=== PATIENT | male | born 1970 | race Caucasian/White ===

== ENCOUNTER 2018-03-29 08:23 | Emergency (ER) | payer OTHER ==
[~2018-03-29] VITALS: Ht 170.2 cm; Wt 105.7 kg
[2018-03-29 08:32] VITALS: Ht 170.2 cm; Wt 105.7 kg
[2018-03-29 10:17] VITALS: BP 141/99
== END 2018-03-29 10:17 | disposition home or self-care (01) ==
LOC: ED 08:23
DX: S49.82XA Other specified injuries of left shoulder and upper arm, initial encounter (principal); S89.82XA Other specified injuries of left lower leg, initial encounter; I10 Essential (primary) hypertension; V49.9XXA Car occupant (driver) (passenger) injured in unspecified traffic accident, initial encounter; W22.12XA Striking against or struck by front passenger side automobile airbag, initial encounter; Y93.I9 Activity, other involving external motion; Y92.413 State road as the place of occurrence of the external cause; Y99.8 Other external cause status
CPT/HCPCS: 72072